=== PATIENT | female | born 1980 | race Caucasian/White ===

== ENCOUNTER 2023-09-05 10:07 | Emergency (ER) | payer OTHER, SELFPAY ==
[2023-09-05] VITALS (31 sets, daily range): BP systolic 139–162; BP diastolic 84–100; PULSE 89–109; RESP 13–30; TEMP 37.1; O2SAT 95–99; BMI 40.4
--- NOTE | 2023-09-05 10:25 | XR_ITS ---
The [address] [address] Patient Name: CARRILLO AZUL MRN: [id number] date: 1980 Sex: F Assigned Patient Location: ER Current Patient Location: ER Accession/Order Number: [id number] Exam Date: 09/05/2023 10:58 Report Date: 09/05/2023 12:14 At the request of: ALLISON MORGAN Procedure: XR chest 1V EXAM: XR chest 1V HISTORY: right sided pain COMPARISON: None. TECHNIQUE: Chest X-ray AP, 1 view FINDINGS: Support devices: None. Lungs/pleura: No consolidation, effusion, or pneumothorax. Heart and mediastinum: Cardiomegaly Bones: No acute abnormality identified. XR/XR chest 1V Impression: Cardiomegaly. No radiographic evidence of acute cardiopulmonary process. Electronically authenticated by: NNEKA STREETER Date: 09/05/2023 12:14
--- NOTE | 2023-09-05 10:25 | ECG_ITS ---
The [facility] Test Date: 2023-09-05 Pat Name: CARRILLO AZUL Department: Room: - Gender: Female [employer]: : 1980 Requested By: [id number] Order Number: [id number] Reading MD: CORINNE FLORENTINO Measurements Intervals [place] Rate: 103 P: 80 ME: 162 QRS: 89 QRSD: 86 T: 270 QT: 304 QTc: 363 Interpretive Statements 1120 Sinus tachycardia [address] depression 4664 Twave abnormality, possible inferior ischemia 9150 abnormal ECG No previous ECG available for comparison Electronically Signed On 09-09-2023 5:27:20 EST by CORINNE FLORENTINO
--- NOTE | 2023-09-05 10:27 | ED_ITS ---
HPI - General Adult General Chief complaint: Back Pain/Injury Stated complaint: RIGT SIDE PAIN Time Seen by Provider: 09/05/23 10:21 Source: patient Mode of arrival: walk-in Limitations: no limitations History of Present Illness HPI narrative: 42-year-old female presents for pain on the right posterior rib area that wraps around towards the front. It started this morning mild and got worse. There was no injury or unusual activity. It is severe and worse in certain positions. She is not complaining of shortness of breath and has not had a fever. Related Data Home Medications Medication Instructions Recorded Confirmed albuterol sulfate 90 mcg/actuation 2 puff inhalation Q4H PRN 09/05/23 09/05/23 aerosol inhaler (Ventolin HFA) shortness of breath or wheezing aspirin 81 mg tablet,delayed 81 mg PO DAILY 09/05/23 09/05/23 release atorvastatin 20 mg tablet 20 mg PO DAILY 09/05/23 09/05/23 budesonide-formoterol HFA 160 2 puff inhalation Q12H 09/05/23 09/05/23 mcg-4.5 mcg/actuation aerosol inhaler (Symbicort) chlorthalidone 25 mg tablet 25 mg PO DAILY 09/05/23 09/05/23 levonorgestrel 0.15 mg-ethinyl 1 tab PO DAILY 09/05/23 09/05/23 estradiol 0.03 mg tablet loratadine 10 mg tablet 10 mg PO Q24H PRN allergies 09/05/23 09/05/23 meloxicam 7.5 mg tablet 7.5 mg PO DAILY 09/05/23 09/05/23 verapamil 180 mg tablet,extended 180 mg PO DAILY 09/05/23 09/05/23 release Previous Rx's Medication Instructions Recorded cyclobenzaprine 10 mg tablet 10 mg PO TID PRN muscle spasm #20 09/05/23 tabs naproxen 375 mg tablet 375 mg PO Q8H PRN pain #20 tabs 09/05/23 Allergies Allergy/AdvReac Type Severity Reaction Status Date / Time GABI Inhibitors Allergy Intermediate Verified 09/05/23 10:16 Review of Systems ROS Narrative A ten point review of systems is negative except as noted above. PFSH PFSH Social History Smoking status: Never smoker Exam Narrative Exam Narrative: Nurses note and vital signs reviewed and patient is not hypoxic. General: The patient appears uncomfortable. Skin: Warm, dry, no pallor noted. There is no rash noted. Head: Normocephalic, atraumatic Eye: Normal conjunctiva, no drainage Ears, Nose, Mouth, and Throat: oral mucosa is moist. Nares patent. Cardiovascular: Regular Rate and Rhythm Respiratory: Patient is in no distress, no accessory muscle use, lungs are cl ear to auscultation, no wheezing, rales or rhonchi Back: The patient has no bruise rash or erythema to her back or flank or chest wall area. She has palpable tenderness in the right posterior lateral rib area inferiorly GI: Soft and nontender Musculoskeletal: The patient has no evidence of calf tenderness, no pitting edema, symmetrical pulses noted bilaterally Neurological: A&O, normal speech Psychiatric: Cooperative Constitutional Vital Signs, click to edit/add: Last Vital Signs Temp 98.7 F 09/05/23 10:12 Pulse 97 H 09/05/23 13:52 Resp 20 09/05/23 13:52 BP 148/94 H 09/05/23 13:59 Pulse Ox 97 09/05/23 13:59 O2 Del Method Room Air 09/05/23 10:44 Course Vital Signs Vital signs: Vital Signs Temperature 98.7 F 09/05/23 10:12 Pulse Rate 109 H 09/05/23 10:12 Respiratory Rate 22 09/05/23 10:12 Blood Pressure 159/84 H 09/05/23 10:12 Pulse Oximetry 99 09/05/23 10:12 Oxygen Delivery Method Room Air 09/05/23 10:12 Temperature 98.7 F 09/05/23 10:12 Pulse Rate 97 H 09/05/23 13:52 Respiratory Rate 20 09/05/23 13:52 Blood Pressure 148/94 H 09/05/23 13:59 Pulse Oximetry 97 09/05/23 13:59 Oxygen Delivery Method Room Air 09/05/23 10:44 Medical Decision Making MDM Narrative Medical decision making narrative: Extensive workup here is negative. At this point my clinical impression is that this is muscle pain. Treatment diagnosis and follow-up were discussed with the patient. No evidence of pulmonary embolism or pneumothorax or kidney stone or UTI or pyelonephritis. Treatment diagnosis and follow-up were discussed with the patient. She has no rash to suggest shingles. The hemangioma finding on the CAT scan was discussed with the patient and she will follow-up with her PCP. Differential Diagnosis Differential Diagnosis: Muscle strain, shingles, UTI, pyelonephritis, kidney stone Lab Data Lab results reviewed: Yes I reviewed the patient's lab results Labs: Lab Results 09/05/23 09/05/23 Range/Units 10:45 12:12 WBC 10.4 (4.0-11.0) 10^3/uL RBC 4.38 (4.20-5.40) 10^6/uL Hgb 13.4 (12.0-16.0) g/dL Hct 41.3 (36.0-48.0) % MCV 94.3 (81.0-99.0) fL MCH 30.6 (26.7-34.0) pg MCHC 32.4 (29.9-35.2) g/dL RDW 13.0 (11.0-15.0) % Plt Count 429 (150-450) 10^3/uL MPV 8.8 L (9.5-13.5) fL Neut % (Auto) 76.3 H (43.0-75.0) % Lymph % (Auto) 14.5 L (20.5-60.0) % [place] % (Auto) 6.9 (1.7-12.0) % Eos % (Auto) 1.3 (0.9-7.0) % Baso % (Auto) 0.6 (0.2-2.0) % Neut # (Auto) 8.0 H (1.4-6.5) 10^3/uL Lymph # (Auto) 1.5 (1.2-3.8) 10^3/uL [place] # (Auto) 0.7 (0.3-0.8) 10^3/uL Eos # (Auto) 0.1 (0.0-0.7) 10^3/uL Baso # (Auto) 0.1 (0.0-0.1) 10^3/uL Abs Immat Gran (auto) 0.04 H (0.00-0.03) 10^3/uL Imm/Tot Granulo (auto) 0.4 (0.0-0.5) % D-Dimer 0.87 H* (<=0.59) mg/L FEU Sodium 136 (136-145) mmol/L Potassium 3.8 (3.5-5.1) mmol/L Chloride 100 (98-107) mmol/L Carbon Dioxide 26.5 (21.0-32.0) mmol/L Anion Gap 13.3 BUN 8.0 (7.0-18.0) mg/dL Creatinine 0.78 (0.55-1.02) mg/dL Est GFR ( Amer) >60 (>=60) Est GFR (Non-Af Amer) >60 (>=60) BUN/Creatinine Ratio 10.3 Glucose 128 H (74-106) mg/dL Calcium 8.7 (8.5-10.1) mg/dL Urine Color Yellow (YELLOW) Urine Clarity Clear (CLEAR) Urine pH 8.0 (5.0-9.0) Ur Specific [place] 1.020 (1.005-1.025) Urine Protein 30 A (NEG/TRACE) mg/dL Urine Glucose (UA) Negative (NEGATIVE) mg/dL Urine Ketones Negative (NEGATIVE) mg/dL Urine Occult Blood Negative (NEGATIVE) Urine Nitrite Negative (NEGATIVE) Urine Bilirubin Negative (NEGATIVE) Urine Urobilinogen 1.0 (0.2-1.0) EU/dL Ur Leukocyte Esterase Negative (NEGATIVE) Urine RBC 0-2 (0-2) #/HPF Urine WBC 0-2 A (NONE SEEN) #/HPF Ur Squamous Epith Cells Rare (NONE/RARE) #/LPF Urine Crystals None seen (None Seen) #/HPF Urine Bacteria None seen (NONE SEEN) #/HPF Urine Casts Seen A (NONE SEEN) #/LPF Hyaline Casts Rare Urine Mucus None seen (NONE SEEN) Imaging Data CT scan - chest: Radiologist's impression: ITS Impressions Chest X-Ray 09/05/23 10:25 Impression: Cardiomegaly. No radiographic evidence of acute cardiopulmonary process. Electronically authenticated by: NNEKA STREETER Date: 09/05/2023 12:14 Chest CTA 09/05/23 12:20 IMPRESSION: 1. No evidence of pulmonary arterial embolism. 2. Pectus excavatum deformity of the anterior chest wall. 3. Minimal peripheral pulmonary scarring lingular segment left upper lobe. 4. Hepatic steatosis. 5. Within the included liver rounded high attenuation foci are present, not optimally assessed on the current study. Potentially, these may be secondary to areas of focal nodular hyperplasia or atypically enhancing hemangiomas. More optimally assessment with nonemergent follow-up MRI of the liver could be considered. Electronically authenticated by: KERRIE RODRIGES Date: 09/05/2023 14:51 Discharge Plan Discharge Chief Complaint: Back Pain/Injury Clinical Impression: Flank pain Patient Disposition: Home, Self-Care Time of Disposition Decision: 15:02 Condition: Good Mode of Transportation: Private Vehicle Prescriptions / Home Meds: New cyclobenzaprine 10 mg tablet 10 mg PO TID PRN (Reason: muscle spasm) Qty: 20 0RF naproxen 375 mg tablet 375 mg PO Q8H PRN (Reason: pain) Qty: 20 0RF No Action albuterol sulfate [Ventolin HFA] 90 mcg/actuation HFA aerosol inhaler 2 puff INHALATION Q4H PRN (Reason: shortness of breath or wheezing) aspirin 81 mg tablet,delayed release (DR/EC) 81 mg PO DAILY atorvastatin 20 mg tablet 20 mg PO DAILY budesonide-formoterol [Symbicort] 160-4.5 mcg/actuation HFA aerosol inhaler 2 puff INHALATION Q12H chlorthalidone 25 mg tablet 25 mg PO DAILY levonorgestrel-ethinyl estrad 0.15-0.03 mg tablet 1 tab PO DAILY meloxicam 7.5 mg tablet 7.5 mg PO DAILY verapamil 180 mg tablet extended release 180 mg PO DAILY loratadine 10 mg tablet 10 mg PO Q24H PRN (Reason: allergies) Instructions: Flank Pain (ED) Additional Instructions: Stop the meloxicam while on naproxen Stand Alone Forms: Portal Instructions Referrals: Physician,Non-Staff, MD [Primary Care Provider] - 1 week
[2023-09-05] MEDS: MORPHINE SULFATE 4 MG/ML VIAL IV (10:39)
[2023-09-05 10:54] LABS: Basophils Absolute Auto 0.1 10^3/uL (0.0-0.1); Basophils Percent Auto 0.6 % (0.2-2.0); Eosinophils Absolute Auto 0.1 10^3/uL (0.0-0.7); Eosinophils Percent Auto 1.3 % (0.9-7.0); Hematocrit 41.3 % (36.0-48.0); Hemoglobin 13.4 g/dL (12.0-16.0); Immature Granulocytes Abs Auto 0.04 10^3/uL (0.00-0.03); Immature Granulocytes Pct Auto 0.4 % (0.0-0.5); Lymphocytes Absolute Auto 1.5 10^3/uL (1.2-3.8); Lymphocytes Percent Auto 14.5 % (20.5-60.0); Mean Corpuscular HGB Conc 32.4 g/dL (29.9-35.2); Mean Corpuscular Hemoglobin 30.6 pg (26.7-34.0); Mean Corpuscular Volume 94.3 fL (81.0-99.0); Mean Platelet Volume 8.8 fL (9.5-13.5); Monocytes Absolute Auto 0.7 10^3/uL (0.3-0.8); Monocytes Percent Auto 6.9 % (1.7-12.0); Neutrophils Percent Auto 76.3 % (43.0-75.0); Platelet Count 429 10^3/uL (150-450); Red Blood Count 4.38 10^6/uL (4.20-5.40); White Blood Count 10.4 10^3/uL (4.0-11.0)
[2023-09-05 11:00] LABS: Anion Gap 13.3; BUN Creatinine Ratio 10.3; Calcium 8.7 mg/dL (8.5-10.1); Carbon Dioxide 26.5 mmol/L (21.0-32.0); Chloride 100 mmol/L (98-107); Estimated GFR (African America >60 (>=60); Estimated GFR (Non-African Ame >60 (>=60); Glucose 128 mg/dL (74-106); Potassium 3.8 mmol/L (3.5-5.1); Sodium 136 mmol/L (136-145)
[2023-09-05 11:16] LABS: D Dimer 0.87 mg/L FEU (<=0.59)
[2023-09-05] MEDS: KETOROLAC TROMETHAMINE 30 MG/ML VIAL IVP (11:45)
--- NOTE | 2023-09-05 12:20 | CT_ITS ---
The [address] [address] Patient Name: CARRILLO AZUL MRN: [id number] date: 1980 Sex: F Assigned Patient Location: ER Current Patient Location: ER Accession/Order Number: [id number] Exam Date: 09/05/2023 13:45 Report Date: 09/05/2023 14:51 At the request of: ALLISON MORGAN Procedure: CT angio chest EXAM: CT angio chest HISTORY: CP , acute right-sided chest pain. COMPARISON: None. TECHNIQUE: Enhanced helical acquisition obtained through the pulmonary arteries with MIP reconstructions. FINDINGS: No evidence of pulmonary arterial embolism. Borderline cardiac enlargement, accentuated secondary to pectus excavatum deformity of the anterior chest wall. No coronary arterial calcifications. No enlarged lymph nodes within the chest. Minimal peripheral pulmonary scarring within the lingular segment left upper lobe. The pleural spaces are clear. Partially included 1.2 cm rounded high attenuation focus within hepatic segment 2 and a 0.9 cm rounded high attenuation focus within hepatic segment 7. Diffuse hepatic steatosis. CT/CT angio chest IMPRESSION: 1. No evidence of pulmonary arterial embolism. 2. Pectus excavatum deformity of the anterior chest wall. 3. Minimal peripheral pulmonary scarring lingular segment left upper lobe. 4. Hepatic steatosis. 5. Within the included liver rounded high attenuation foci are present, not optimally assessed on the current study. Potentially, these may be secondary to areas of focal nodular hyperplasia or atypically enhancing hemangiomas. More optimally assessment with nonemergent follow-up MRI of the liver could be considered. Electronically authenticated by: KERRIE RODRIGES Date: 09/05/2023 14:51
[2023-09-05 12:37] LABS: Bilirubin Urine NEGATIVE (NEGATIVE); Blood Urine NEGATIVE (NEGATIVE); Clarity Urine CLEAR (CLEAR); Color Urine YELLOW (YELLOW); Glucose Urine UA NEGATIVE (NEGATIVE); Ketones Urine NEGATIVE (NEGATIVE); Leukocyte Esterase Urine NEGATIVE (NEGATIVE); Nitrite Urine NEGATIVE (NEGATIVE); Protein Urine 30 mg/dL (NEG/TRACE)
[2023-09-05 13:03] LABS: Bacteria Urine NONE SEEN #/HPF (NONE SEEN); Mucus Urine NONE SEEN (NONE SEEN); RBC Urine 0-2 #/HPF (0-2); WBC Urine 0-2 #/HPF (NONE SEEN)
[2023-09-05 13:04] LABS: Cast Seen? SEEN #/LPF (NONE SEEN); Crystals Seen? None Seen #/HPF (None Seen); Hyaline Casts Urine RARE; Squamous Epithelial Cell Urine RARE #/LPF (NONE/RARE)
== END 2023-09-05 15:13 | disposition home or self-care (01) ==
PROVIDERS: Emergency Provider Emergency Medicine
DX: R10.9 Unspecified abdominal pain (principal); Z79.82 Long term (current) use of aspirin; Z79.899 Other long term (current) drug therapy
CPT/HCPCS: 36415; 71045; 71275; 80048; 81001; 85025; 85378; 93005; 96374; 96375; 99285; J1885; J2270; Q9967